=== PATIENT | male | born 1995 | race Caucasian/White ===

== ENCOUNTER 2020-07-10 03:01 | Emergency (ER) | payer OTHER, MEDICAID, SELFPAY ==
[2020-07-10 03:10] VITALS: BP 137/69; PULSE 87; RESP 15; TEMP 36.6; O2SAT 98; BMI 32.0
--- NOTE | 2020-07-10 03:17 | ED.LOWEXIN ---
HPI - Extremity Injury (Lower) General Chief Complaint: Extremity Injury, Lower Stated Complaint: multiple complaints, left foot hurts Time Seen by Provider: 07/10/20 03:16 History of Present Illness HPI Narrative: 25-year-old gentleman brought in by [employer] with reports of wandering the streets. He has no acute medical issue at this time. He states he wants a place to sleep. He said [place] lives [place] and came over on the [place] today to meet a friend from [place] and ?smoke some pot and drive around?. Unfortunately once he got to [employer] he realized he did not have a wallet or phone or a way to reach his friend. Related Data Allergies Allergy/AdvReac Type Severity Reaction Status Date / Time No Known Drug Allergies Allergy Verified 07/10/20 03:17 Review of Systems Review of Systems Narrative: Patient is uncooperative and review of systems is unobtainable Patient History Social History Smoking Status: Current every day smoker Exam Narrative Exam Narrative: General: Sleepy, appears mildly intoxicated, belligerent but in no acute distress Respiratory: Able to speak in full sentences, no obvious respiratory distress Skin: No obvious rashes, warm and dry Neurologic: Grossly intact no obvious asymmetries or abnormalities Extremities: Feet are mildly swollen bilaterally does appear that he has been walking quite a bit today but no skin breakdown or abrasions Initial Vital Signs Initial Vital Signs: Vital Signs Temperature 97.9 F 07/10/20 03:10 Pulse Rate 87 07/10/20 03:10 Respiratory Rate 15 07/10/20 03:10 Blood Pressure 137/69 07/10/20 03:10 Pulse Oximetry 98 07/10/20 03:10 Course Vital Signs Vital signs: Vital Signs - 8 hr 07/10/20 03:10 Temperature 97.9 F Pulse Rate 87 Respiratory Rate 15 Blood Pressure 137/69 Pulse Oximetry 98 MDM - Extremity Injury (Lower) MDM Narrative Medical decision making narrative: 25-year-old gentleman who was reportedly walking the streets of [place] at 3:30 a.m. in the morning noted to be wandering the streets by police and brought to the emergency department. He has no acute medical emergency and a medical screening exam was done. Unfortunately we do not have any additional home health care social worker to offer him. He is discharged back to the streets at this time Discharge Plan Departure Patient Disposition: Home Clinical Impression: Homelessness Activity Restrictions/Additional Instructions: I am sorry we don't have any options for you this evening. You had a medical screening exam in you have no acute medical emergencies. We do not have shelters are options for you and you may not sleep in the hospital this evening You either need to return to [place] and your home there or work your way to [place] to your father's house.
== END 2020-07-10 04:05 | disposition home or self-care (01) ==
PROVIDERS: Emergency Provider Emergency Medicine
DX: M79.672 Pain in left foot (principal); Z59.0 Homelessness
CPT/HCPCS: 99281